=== PATIENT | female | born 1995 | race Two or more races ===

== ENCOUNTER → 2023-05-05 | Outpatient (CLI) | payer OTHER | LOC: M WHC 13:41 | PROVIDERS: ATTEND Specialist | DX: O32.1XX0 Maternal care for breech presentation, not applicable or unspecified (principal); Z3A.18 18 weeks gestation of pregnancy ==

== ENCOUNTER → 2023-05-26 | Outpatient (CLI) | payer OTHER | LOC: M WHC 11:09 | PROVIDERS: ATTEND Advanced Practice Midwife | DX: Z34.02 Encounter for supervision of normal first pregnancy, second trimester (principal) ==

== ENCOUNTER → 2023-06-23 | Outpatient (CLI) | payer OTHER ==
[2023-06-23 16:02] LABS: HEMOGLOBIN 9.8 g/dl (12.0-15.5); MEAN CORPUSCULAR HEMOGLOBIN 30.4 pg (27.0-33.0); MEAN CORPUSCULAR HGB CONC 32.7 g/dl (32.0-36.5); MEAN CORPUSCULAR VOLUME 93.2 fl (80.0-96.0); PLATELET COUNT, AUTOMATED 225 10^3/uL (150-450); RED BLOOD COUNT 3.22 10^6/uL (4.00-5.40); WHITE BLOOD COUNT 6.5 10^3/uL (4.0-10.0)
== END ==
LOC: M PLALAB 11:41
PROVIDERS: ATTEND Advanced Practice Midwife
DX: Z34.02 Encounter for supervision of normal first pregnancy, second trimester (principal)

== ENCOUNTER → 2023-09-06 | Outpatient (REF) | payer OTHER | LOC: M SFHCWAGY 15:09 | PROVIDERS: ATTEND Obstetrics & Gynecology | DX: O32.1XX0 Maternal care for breech presentation, not applicable or unspecified (principal); Z36.85 Encounter for antenatal screening for Streptococcus B ==

== ENCOUNTER 2023-09-25 02:55 | Inpatient (IN) | payer OTHER ==
[2023-09-25] VITALS (9 sets, daily range): BP systolic 89–110; BP diastolic 46–70; TEMP 97.4; O2SAT 97–100
[~2023-09-25] VITALS: Ht 162.6 cm; Wt 73.6 kg
[~2023-09-25 02:55] MED LIST: IRON27TA2 PO; PREN1CHW PO
[2023-09-25] MEDS: LACTATED RINGER'S 1000 ML IV STA (07:55)
[2023-09-25 08:19] LABS: HEMATOCRIT 33.5 % (36.0-47.0); HEMOGLOBIN 11.2 g/dl (12.0-15.5); MEAN CORPUSCULAR HEMOGLOBIN 29.8 pg (27.0-33.0); MEAN CORPUSCULAR HGB CONC 33.4 g/dl (32.0-36.5); MEAN CORPUSCULAR VOLUME 89.1 fl (80.0-96.0); PLATELET COUNT, AUTOMATED 211 10^3/uL (150-450); RED BLOOD COUNT 3.76 10^6/uL (4.00-5.40); WHITE BLOOD COUNT 6.2 10^3/uL (4.0-10.0)
[2023-09-25] MEDS: LR 1,000 ML IV SCH ×3 (08:58→16:18)
[2023-09-25 09:27] LABS: HEPATITIS C VIRUS ABY INDEX < 0.02 INDEX (<0.8)
[2023-09-25] MEDS: BICITRA 30ML SOLN UDC PO ONE (09:54)
[2023-09-25] MEDS: ceFAZolin SOD 2 GM in IV 1 EA IV ONE (09:55)
[2023-09-25] MEDS ORDERED: MORPHINE PRES-FREE INJ 10 MG/10 ML VIAL As Ordered ONE (10:25)
[2023-09-25] MEDS ORDERED: fentaNYL 100 MCG/2 ML INJECTION As Ordered ONE (10:25)
[2023-09-25] MEDS ORDERED: PHENYLephrine 500MCG 5ML (100MCG/ML) SYRINGE As Ordered ONE (10:25)
[2023-09-25] MEDS ORDERED: OXYTOCIN INJ 10UNITS/ML 1ML VIAL As Ordered ONE (10:25)
[2023-09-25] MEDS ORDERED: KETOROLAC 60MG 2ML VIAL As Ordered ONE (11:01)
[2023-09-25] MEDS ORDERED: ONDANSETRON 4MG 2ML VIAL As Ordered ONE (11:01)
[2023-09-25] MEDS ORDERED: SIMETHICONE 80MG CHEW TAB PO PRN (11:20)
[2023-09-25] MEDS ORDERED: CALCIUM CARBONATE 500 MG CHEW U/D PO PRN (11:20)
[2023-09-25] MEDS ORDERED: METHYLERGONOVINE MALEATE 0.2 MG TAB PO PRN (11:20)
[2023-09-25] MEDS ORDERED: RHO(D) IMMUNE GLOBULIN/MALTOSE 500MCG(2500IU)/2.2ML VIAL (WINRHO) IM SCH (11:20)
[2023-09-25] MEDS ORDERED: ONDANSETRON 4MG 2ML VIAL IV PRN ×3 (11:20→11:55)
[2023-09-25] MEDS ORDERED: MORPHINE 2 MG/ML 1ML VIAL IV PRN (11:20)
[2023-09-25] MEDS ORDERED: ANUSOL HC CREAM 30GM TOP PRN (11:20)
[2023-09-25] MEDS ORDERED: COLA100C5 PO (11:49)
[2023-09-25] MEDS ORDERED: PERCOCET PO (11:49)
[2023-09-25] MEDS ORDERED: IBUP80TA PO (11:49)
[2023-09-25] MEDS ORDERED: **NOTE PATIENT COMMENT** MISC XX SCH (11:55)
[2023-09-25] MEDS ORDERED: fentaNYL 100 MCG/2 ML INJECTION IV PRN (11:55)
[2023-09-25] MEDS ORDERED: diphenhydrAMINE 50MG/ML VIAL IV PRN (11:55)
[2023-09-25] MEDS ORDERED: NALOXONE INJ 0.4MG/1ML VIAL IV PRN ×2 (11:55)
[2023-09-25] MEDS ORDERED: oxyCODONE 5MG TAB PO PRN (11:55)
[2023-09-25] MEDS ORDERED: OXYTOCIN 30UNITS IN 0.9% NaCl 500ML IV BAG As Ordered ONE (11:55)
[2023-09-25] MEDS ORDERED: METOCLOPRAMIDE INJ 10MG/2ML VIAL IV PRN (11:55)
[2023-09-25] MEDS: SLF 3 ML SYR IV SCH (12:00)
[2023-09-25] MEDS: OXYTOCIN DRIP 30 UNITS in IV 1 EA IV SCH (12:10)
[2023-09-25] MEDS: KETOROLAC 30 MG/ML 1ML VIAL IV SCH (17:16)
[2023-09-25] MEDS: DOCUSATE SODIUM 100MG CAPSULE PO SCH (21:00)
[2023-09-26 02:00] VITALS: BP 96/49; O2SAT 96
[2023-09-26] MEDS: PERCOCET 5MG/325MG TAB PO PRN (03:38)
[2023-09-26 05:50] LABS: HEMATOCRIT 28.8 % (36.0-47.0); HEMOGLOBIN 9.5 g/dl (12.0-15.5); MEAN CORPUSCULAR HEMOGLOBIN 29.2 pg (27.0-33.0); MEAN CORPUSCULAR VOLUME 88.6 fl (80.0-96.0); PLATELET COUNT, AUTOMATED 170 10^3/uL (150-450); RED BLOOD COUNT 3.25 10^6/uL (4.00-5.40)
[2023-09-26 06:00] VITALS: BP 105/55; O2SAT 98
[2023-09-26] MEDS: PRENATAL VITAMINS CHEWABLE TABLET PO SCH (07:38)
[2023-09-26] MEDS: ACETAMINOPHEN 500 MG TAB PO PRN (07:41)
[2023-09-26 10:00] VITALS: BP 104/50; O2SAT 100
[2023-09-26] MEDS: FERROUS SULFATE 325MG TAB PO SCH (10:12)
[2023-09-26] MEDS: IBUPROFEN 800 MG TAB PO SCH (12:57)
[2023-09-26 14:00] VITALS: BP 130/61; O2SAT 98
[2023-09-26 18:00] VITALS: BP 107/55; O2SAT 97
[2023-09-26 22:00] VITALS: BP 118/59; O2SAT 98
[2023-09-27] MEDS: PERCOCET 5MG/325MG TAB PO PRN (01:39)
[2023-09-27 02:00] VITALS: BP 116/77; O2SAT 97
[2023-09-27 06:00] VITALS: BP 111/55; O2SAT 98
[2023-09-27] MEDS: MEASLES,MUMPS,RUBELLA VACCINE INJ (MMR-II) SC.IMMUN ONE (09:00)
[2023-09-27 10:00] VITALS: BP 109/57; O2SAT 98
== END 2023-09-27 18:45 | disposition home or self-care (01) | DRG 773 ==
LOC: M ED INP 02:55 → M LDI 07:15 → M OBS 12:50
PROVIDERS: ADMIT Obstetrics & Gynecology; ATTEND Obstetrics & Gynecology
PROC: 10D00Z1 Extraction of Products of Conception, Low, Open Approach (ICD-10-PCS; principal; 2023-09-25 09:30)
DX: O32.1XX0 Maternal care for breech presentation, not applicable or unspecified (principal); Z37.0 Single live birth; Z3A.39 39 weeks gestation of pregnancy

== ENCOUNTER → 2025-01-16 | Outpatient (CLI) | payer OTHER ==
[~2025-01-16] MED LIST changes: +COLA100C5 PO; +IBUP80TA PO; +PERCOCET PO
[2025-01-16 16:11] LABS: BASO # 0.0 10^3/uL (0.0-0.2); BASO % 0.4 % (0.0-1.0); EOS # 0.1 10^3/uL (0.0-0.5); EOS % 1.4 % (0.0-3.0); LYMPH # 1.8 10^3/uL (1.5-5.0); LYMPH % 36.9 % (24.0-44.0); MONO # 0.4 10^3/uL (0.0-0.8); MONO % 7.0 % (2.0-8.0); NEUTROPHILS # 2.7 10^3/uL (1.5-8.5); NEUTROPHILS % 54.1 % (36.0-66.0); PLATELET COUNT, AUTOMATED 280 10^3/uL (150-450)
[2025-01-16 16:35] LABS: C REACTIVE PROTEIN QUANTITATIV < 0.50 MG/DL (<1.0)
[2025-01-16 19:17] LABS: ERYTHROCYTE SEDIMENTATION RATE 15 mm/hr (0-20)
== END ==
LOC: M RAD 15:02
PROVIDERS: ATTEND Nurse Practitioner Adult Health
DX: R10.31 Right lower quadrant pain (principal)